=== PATIENT | female | born 1990 | race Caucasian/White ===

== ENCOUNTER 2021-05-23 16:47 | Emergency (ER) | payer MEDICAID, OTHER ==
[~2021-05-23] VITALS: Ht 162.6 cm; Wt 92.5 kg
[~2021-05-23 16:47] MED LIST: CALC500T31 PO; FOLI5CAP PO; PREN-502 PO
[2021-05-23 16:48] VITALS: BP 121/60
--- NOTE | 2021-05-23 17:19 | NUR ---
31yo f c/o left knee pain x 2 hours. pt dislocated left knee when sliding down an indoor playground with her child. pt snapped back dislocated knee and applied a knee brace from [employer]. pt experienced worsening pain 8/, and went to er. pt also with left 5th digit pain and swelling. pt took aspirin at 3pm which provided minimal relief.
[2021-05-23] MEDS ORDERED: KETOROLAC 30 MG/ML VIAL IM ONE (17:20)
[2021-05-23] MEDS ORDERED: NAPR-1704 PO (17:23)
--- NOTE | 2021-05-23 17:33 | NUR ---
PT GIVEN CRUTCHES THAT WERE ADJUSTED TO PT'S SIZE AND HEIGHT. PT STATES THAT THEY ALREADY KNOW HOW TO USE CRUTCHES AND SHOWED PROPER DEMENSTRATION OF CRUTCHES TO STAFF. PT HAD NO FURTHER QUESTIONS, RN AND PA NOTIFIED.
[2021-05-23 17:35] VITALS: BP 121/60
== END 2021-05-23 17:36 | disposition home or self-care (01) ==
LOC: MED 16:47
DX: M25.562 Pain in left knee (principal); Z88.0 Allergy status to penicillin; Z79.899 Other long term (current) drug therapy
CPT/HCPCS: 96372; 99283; J1885